=== PATIENT | male | born 1990 | race Caucasian/White ===

== ENCOUNTER 2020-12-31 09:03 | Emergency (ER) | payer OTHER ==
[~2020-12-31 09:03] MED LIST: ATARAX25 MG PO; BIKTARVY 50-201 EACH PO; CLONAZEPAM 1MG T1 MG PO; DICLOFENAC SODI75 MG PO; EPINEPHRIN0.3 MG/0.3 IM; INDERAL20 MG PO; PEPCID AC20 MG PO; PREDNISONE20 MG PO; PRILOSEC20 MG PO; REMERON15 MG PO; SINGULAIR10 MG PO; TIZANIDINE HCL4 M1 PO; TOBRADEX EYE DRO5 ML EYERT; ZYRTEC10 MG PO
[2020-12-31 10:08] LABS: BASOPHIL 0.7 % (0-2); EOSINOPHIL 0.7 % (0-5); HCT 45.8 % (42.0-52.0); HGB 15.8 g/dl (13.2-18.0); LYMPHOCYTE 22.4 % (15-48); MCH 30.2 pg (25.0-31.0); MCHC 34.5 g/dL (32.0-36.0); MCV 87.6 fL (78.0-100.0); MONOCYTE 8.3 % (0-12); MPV 9.9 fL (6.0-9.5); NEUTROPHIL 67.5 % (41-80); NRBC 0; PLT 251 K/uL (150-400); RBC 5.23 M/uL (4.70-6.00); RDW 12.2 % (11.5-14.0); WBC 7.6 K/uL (4.0-10.5)
[2020-12-31 10:28] LABS: BILIRUBIN - TOTAL 0.5 mg/dL (0.2-1.0); BUN/CREAT RATIO (CALC) 9.6 RATIO; CREATININE 1.15 mg/dL (0.67-1.17); GLOBULIN (CALCULATION) 3.2 g/dL; POTASSIUM 3.6 mmol/L (3.5-5.1); TOTAL PROTEIN 7.2 g/dL (6.4-8.2)
[2020-12-31 11:00] LABS: CORONAVIRUS 2019 SARS-COV-2 NEGATIVE (NEGATIVE); INFLUENZA A NAA NEGATIVE (NEGATIVE)
== END 2020-12-31 13:09 | disposition home or self-care (01) ==
LOC: FER 09:03
PROVIDERS: Emergency Medicine
DX: R07.89 Other chest pain (principal); R00.2 Palpitations; R42 Dizziness and giddiness; R51.9 Headache, unspecified; R11.0 Nausea; Z87.891 Personal history of nicotine dependence; Z20.822 Contact with and (suspected) exposure to COVID-19
CPT/HCPCS: 36415; 36600; 71045; 80053; 82803; 84484; 85025; 85379; 93005; J2405; U0002